=== PATIENT | male | born 1980 | race Two or more races ===

== ENCOUNTER 2019-08-24 18:28 | Emergency (ER) | payer SELFPAY ==
[~2019-08-24] VITALS: Ht 172.7 cm; Wt 70.0 kg
[2019-08-24] MEDS ORDERED: KETOROLAC 60MG/2ML VIAL IM ONE (20:45)
[2019-08-24 21:08] VITALS: BP 112/69
== END 2019-08-24 22:15 | disposition home or self-care (01) ==
LOC: ER 18:28
DX: J06.9 Acute upper respiratory infection, unspecified (principal)
CPT/HCPCS: 96372; 99283; J1885